=== PATIENT | male | born 1965 | race Caucasian/White ===

== ENCOUNTER 2024-02-25 03:57 | Emergency (ER) | payer SELFPAY ==
[~2024-02-25] VITALS: Ht 177.8 cm; Wt 110.5 kg
[2024-02-25] MEDS ORDERED: EPINEPHrine 1:1,000 [1 MG/ML] VIAL ONE (04:03)
[2024-02-25 04:12] VITALS: TEMP 98.2
[2024-02-25] MEDS: IPRATROPIUM BROMIDE 0.5 MG/2.5 ML NEB SOLUTION NEB ONE ×2 (04:16→06:52)
[2024-02-25] MEDS: ALBUTEROL SULFATE 2.5 MG/0.5 ML 5 ML NEB SOLUTION NEB ONE (04:16)
[2024-02-25] MEDS ORDERED: ALBU18HF12 IH ×2 (04:18→06:32)
[2024-02-25 04:24] VITALS: PULSE 114; RESP 34; O2SAT 99
[2024-02-25 04:30] VITALS: PULSE 114; RESP 34; O2SAT 99
[2024-02-25] MEDS: MethylPREDNISolone SOD SUCC 125 MG/2 ML VIAL IVP ONE (04:30)
[2024-02-25 04:31] VITALS: BP 178/100
[2024-02-25] MEDS: EPINEPHrine 1:1,000 [1 MG/ML] VIAL IM ONE (04:31)
[2024-02-25 04:33] LABS: BASOPHILS % (AUTO) 0.9 % (0.0-2.0); EOSINOPHILS % (AUTO) 7.7 % (1.0-6.0); HEMATOCRIT 43.6 % (41-53); HEMOGLOBIN 14.4 g/dL (13.5-17.5); LYMPHOCYTES # (AUTO) 3.1 K/uL (1.0-4.8); LYMPHOCYTES % (AUTO) 30.7 % (22.0-44.0); MEAN CORPUSCULAR HEMOGLOBIN 28.3 pg (26.0-34.0); MEAN CORPUSCULAR HGB CONC 33.1 G/dL (31.0-37.0); MEAN CORPUSCULAR VOLUME 86 fL (80-100); MONOCYTES # (AUTO) 1.1 K/uL (0.1-1.0); MONOCYTES % (AUTO) 10.7 % (2.0-9.0); NEUTROPHILS # (AUTO) 5.1 K/uL (1.8-7.7); PLATELET COUNT (AUTO) 333 K/uL (150-450); RED CELL DISTRIBUTION WIDTH 14.4 % (11.5-14.5); WHITE BLOOD COUNT (AUTO) 10.3 K/uL (4.5-11.0)
[2024-02-25 04:34] VITALS: PULSE 114; RESP 34; O2SAT 99
[2024-02-25] MEDS: MAGNESIUM SULFATE 2 GM in DEXTROSE 5%-WATER 100 ML IV ONE (04:41)
[2024-02-25 04:42] LABS: CALCIUM, TOTAL 9.1 mg/dL (8.8-10.5); CREATININE 1.4 mg/dL (0.60-1.30); POTASSIUM 4.2 mmol/L (3.5-5.1)
[2024-02-25 04:51] LABS: TROPONIN I-HIGH SENSITIVITY 28 ng/L (<76)
[2024-02-25] MEDS: SODIUM CHLORIDE 0.9% 1,000 ML IV ONE (05:17)
[2024-02-25] MEDS ORDERED: PRED-554 PO (06:32)
[2024-02-25] MEDS: ALBUTEROL SULFATE 2.5 MG/0.5 ML NEB SOLUTION NEB ONE (06:52)
== END 2024-02-25 07:00 | disposition home or self-care (01) ==
LOC: EMS 03:58
DX: J96.01 Acute respiratory failure with hypoxia (principal); J45.901 Unspecified asthma with (acute) exacerbation
CPT/HCPCS: 99291; 96365; 71045; 96375; 80048; 84484; 85025; 36415; 94660; 94640; 93005; 96372; J0171; J2919; J7060; J3475